=== PATIENT | male | born 1980 | race Asian ===

== ENCOUNTER 2017-02-22 07:56 | Outpatient (CLI) | payer BC ==
[2017-02-22 11:40] LABS: BASOPHILS % (AUTO) 0.4 %; EOSINOPHILS # (AUTO) 0.2 10^3/uL (0.0-0.7); EOSINOPHILS % (AUTO) 2.6 %; HCT - HEMATOCRIT 44.1 % (42.0-52.0); HGB - HEMOGLOBIN 14.6 g/dL (14.0-18.0); LYMPHOCYTES # (AUTO) 1.9 10^3/uL (1.5-3.5); LYMPHOCYTES % (AUTO) 25.4 %; MEAN CORPUSCULAR HEMOGLOBIN 28.9 pg (27.0-31.0); MEAN CORPUSCULAR HGB CONC 33.2 g/dL (32.0-36.0); MEAN CORPUSCULAR VOLUME 87.1 fL (80.0-94.0); MEAN PLATELET VOLUME 8.8 fL (7.4-11.4); MONOCYTES # (AUTO) 0.5 10^3/uL (0.0-1.0); MONOCYTES % (AUTO) 7.2 %; NEUTROPHILS # (AUTO) 4.8 10^3/uL (1.5-6.6); NEUTROPHILS % (AUTO) 64.4 %; RED BLOOD COUNT 5.06 10^6/uL (4.70-6.10); RED CELL DISTRIBUTION WIDTH 13.8 % (12.0-15.0); UNCORRECTED WHITE BLOOD COUNT 7.4 x10^3/uL; WHITE BLOOD COUNT 7.4 x10^3/uL (4.8-10.8)
[2017-02-22 12:18] LABS: ALBUMIN/GLOBULIN RATIO 1.8 (1.0-2.2); BILIRUBIN,TOTAL 0.5 mg/dL (0.2-1.0); BUN - BLOOD UREA NITROGEN 19 mg/dL (6-20); CALCIUM 9.2 mg/dL (8.5-10.3); CARBON DIOXIDE - CO2 25 mmol/L (21-32); CHLORIDE 102 mmol/L (101-111); CHOL/HDL RATIO 3.3 (<5.0); CHOLESTEROL 218 mg/dL; GFR - MDRD 85 (>89); GLUCOSE 93 mg/dL (70-100); HDL CHOLESTEROL 67 mg/dL; POTASSIUM 3.9 mmol/L (3.5-5.0); SODIUM 137 mmol/L (135-145); TOTAL PROTEIN 6.9 g/dL (6.7-8.2); TRIGLYCERIDES 33 mg/dL
[2017-02-22 13:20] LABS: LDL CHOLESTEROL,DIRECT 147 mg/dL
== END 2017-02-22 07:57 | disposition home or self-care (01) ==
LOC: LAB.F 07:56
PROVIDERS: ATTEND Physician Assistant Medical
DX: Z00.00 Encounter for general adult medical examination without abnormal findings (principal); Z01.83 Encounter for blood typing; E55.9 Vitamin D deficiency, unspecified
CPT/HCPCS: 36415; 80053; 80061; 82306; 84443; 85025; 86900; 86901

== ENCOUNTER 2020-11-18 08:00 | Outpatient (CLI) | payer BC, OTHER ==
--- NOTE | 2020-11-18 16:10 | XRAY Report ---
PROCEDURE: Shoulder 3 View RT INDICATIONS: RIGHT SHOULDER PAIN TECHNIQUE: 3 views of the shoulder were acquired. COMPARISON: None. FINDINGS: Bones: No fractures or dislocations. No suspicious bony lesions. Visualized ribs appear intact. Soft tissues: No suspicious soft tissue calcifications. IMPRESSION: No evidence acute bony abnormality of the right shoulder. If clinical suspicion and/or symptoms persist, further assessment with repeat plain films or advanced imaging (e.g., CT, MRI, or bone scan) may be helpful for further assessment. Reviewed by: Fer Bernabe MD on 11/18/2020 4:08 PM PDT Approved by: Fer Bernabe MD on 11/18/2020 4:08 PM PDT Station ID: [id number]
== END 2020-11-18 23:59 | disposition home or self-care (01) ==
LOC: DI.S 08:00
PROVIDERS: ATTEND Physician Assistant Medical
DX: M25.511 Pain in right shoulder (principal)

== ENCOUNTER 2022-09-11 08:00 | Outpatient (CLI) | payer OTHER ==
--- NOTE | 2022-09-11 16:51 | XRAY Report ---
PROCEDURE: Tib/Fib RT INDICATIONS: RIGHT LOWER LEG PAIN TECHNIQUE: 2 views of the tibia and fibula were acquired. COMPARISON: None. FINDINGS: Bones: No fractures or dislocations. No suspicious bony lesions. Soft tissues: No suspicious soft tissue calcifications or masses. IMPRESSION: No acute fracture. No osseous lesion. If symptoms and/or clinical suspicion for pathology continue, f urther assessment with repeat plain films, or advanced imaging (e.g., CT, MRI, or bone scan) is recom mended for further assessment. Reviewed by: Nighat Pepe MD on 09/11/2022 4:50 PM PDT Approved by: Nighat Pepe MD on 09/11/2022 4:50 PM PDT Station ID: [id number]
== END 2022-09-11 23:59 | disposition home or self-care (01) ==
LOC: DI.S 08:00
PROVIDERS: ATTEND Registered Nurse
DX: M79.604 Pain in right leg (principal); S80.11XA Contusion of right lower leg, initial encounter

== ENCOUNTER 2023-05-03 07:00 | Outpatient (CLI) | payer BC, OTHER ==
--- NOTE | 2023-05-03 19:52 | XRAY Report ---
PROCEDURE: Finger(s) RT INDICATIONS: RIGHT THUMB PAIN TECHNIQUE: AP hand, 3 views of the first finger(s) acquired. COMPARISON: None FINDINGS: Bones: No fractures or dislocations. No suspicious bony lesions. Soft tissues: No suspicious soft tissue calcifications. IMPRESSION: Unremarkable right thumb radiographs Reviewed by: Klever Lenz MD on 05/03/2023 6:50 PM [place] Approved by: Klever Lenz MD on 05/03/2023 6:50 PM [place] Station ID: [id number]
== END 2023-05-03 23:59 | disposition home or self-care (01) ==
LOC: DI.S 07:00
PROVIDERS: ATTEND Emergency Medicine
DX: M79.644 Pain in right finger(s) (principal)